=== PATIENT | female | born 1990 | race Caucasian/White ===

== ENCOUNTER 2018-05-06 21:40 | Emergency (ER) | payer BC ==
[~2018-05-06 21:40] MED LIST: Glycopyrrolate 0.2 MG/ML 5 ML SYRINGE ONE; Lidocaine 1% PF 5 ML VIAL ONE; Ondansetron HCl/PF 4 MG/2 ML Vial ONE; PROPOFOL 200 MG/20 ML VIAL ONE; Succinylcholine Chloride 20 MG/ML 10 ml SYRINGE FS ONE
[2018-05-06 22:05] LABS: #Basophils 0.1 thou/uL (0.0-0.2); #Eosinphils 0.1 thou/uL (0.0-0.7); #Lymphocytes 2.6 thou/uL (1.20-3.40); #Monocytes 0.6 thou/uL (0.11-0.59); #Neutrophils 4.9 thou/uL (1.40-6.50); %Basophils 0.7 % (0.0-1.0); %Eosinophils 1.8 % (0.0-10.0); %Lymphocytes 30.9 % (21.0-51.0); %Monocytes 7.5 % (0.0-10.0); %Neutrophils 59.2 % (42.0-75.0); Hemoglobin 13.4 g/dL (12.0-16.0); Mean Corpuscular HGB CONC 34.4 g/dL (32.0-36.0); Mean Platelet Volume 7.3 fL (7.4-10.4); Platelet Count 234 thou/uL (130-400); RBC Distribution Width 12.1 % (11.5-14.5); Red Blood Cell (RBC) Count 4.19 mill/uL (4.20-5.40); White Blood Cell (WBC) Count 8.3 thou/uL (4.8-10.8)
--- NOTE | 2018-05-06 23:18 | ULT ---
ULTRASOUND PELVIC TRANSVAGINAL WITH DOPPLER: History: Vaginal bleeding. Comparison: None. FINDINGS: Uterus is retroflexed. The thickness of the endometrium is 1.4 cm. There is vascular flow to be ovaries. Moderate volume of free fluid. Abnormal left adnexal mass adjacent to the left ovary. IMPRESSION: Findings concerning for ruptured left adnexal ectopic . Code CR. Dr. Adair 10:55 p.m. POS: [facility]
[2018-05-06] MEDS ORDERED: Fentanyl 250 MCG/5 ML VIAL ONE (23:26)
[2018-05-06] MEDS ORDERED: Midazolam HCl 2 mg/2 ml Vial ONE (23:26)
[2018-05-07] MEDS ORDERED: Bupivacaine/Epinephrine 0.25% 30 ML VIAL ONE (00:22)
--- NOTE | 2018-05-07 00:38 | HP ---
DATE OF SERVICE: 05/06/2018 CHIEF COMPLAINT: Abdominal pain, vaginal bleeding. HISTORY OF PRESENT ILLNESS: This is a 27-year-old G3, P2-0-0-1 at approximately 7 weeks' gestation, who came in with vaginal bleeding and significant cramping with left lower quadrant pain. She was evaluated in the emergency room with an ultrasound showing suspected ectopic . Her pain has since improved, but she continues to have some mild vaginal bleeding. REVIEW OF SYSTEMS: Negative for head, eyes, ears, nose, throat, cardiovascular , respiratory, GI, , neuro, psych, musculoskeletal, skin, or constitutional symptoms other than mentioned above. PAST MEDICAL HISTORY: Hypothyroidism. PAST SURGICAL HISTORY: Prior x2, appendectomy. MEDICATIONS: Levothyroxine. ALLERGIES: No known drug allergies. SOCIAL HISTORY: Negative for tobacco, alcohol, or drug abuse. 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 Second delivery: Repeat was uncomplicated and the child is living. PHYSICAL EXAMINATION: VITAL SIGNS: Afebrile, normotensive, and mild tachycardia. GENERAL: Awake, alert, in no acute distress. CHEST: Nonlabored breathing. ABDOMEN: Soft, minimally tender to palpation. No rebound or guarding. EXTREMITIES: No edema. IMAGING: Pelvic ultrasound with thickened endometrium at 1.4 cm. Moderate free fluid and possible left ectopic noted. LABORATORY DATA: hCG 1125, hemoglobin 13.4, hematocrit 38.9. ASSESSMENT AND PLAN: A 27-year-old G3, P2-0-0-1 with possible ruptured ectopic based on ultrasound findings. I discussed the findings with patient and recommended proceeding with diagnostic laparoscopy with possible removal of ectopic . All consents were signed, questions were answered and we will proceed with the surgery as described. No antibiotics indicated. PCDs for DVT prophylaxis. MTDD
[2018-05-07] MEDS ORDERED: Meperidine HCl/PF 25 MG/ML VIAL ONE (01:12)
[2018-05-07] MEDS ORDERED: Promethazine HCl 25 MG/ML VIAL ONE (01:18)
[2018-05-07] MEDS ORDERED: Fentanyl 100 MCG/2 ML VIAL ONE (01:47)
--- NOTE | 2018-05-07 02:10 | OP ---
DATE OF SERVICE: 05/07/2018 PREPROCEDURE DIAGNOSIS: Suspected ectopic . POSTPROCEDURE DIAGNOSES: Left ectopic with hemoperitoneum. PROCEDURE PERFORMED: Laparoscopic left salpingectomy with evacuation of hemoperitoneum. SURGEON: Laquita Benoit M.D. [employer] SUPERVISOR: Savanna Liu D.O. ANESTHESIA: General endotracheal. COMPLICATIONS: None. ESTIMATED BLOOD LOSS: 10 mL. FINDINGS: Normal uterus, ovaries bilaterally, and right fallopian tube. Left fallopian tube with a bleeding ectopic . A small hemoperitoneum noted. A surgically absent appendix. Small adhesions of omentum to anterior abdominal wall. DESCRIPTION OF PROCEDURE: The patient was taken to the operating room where general anesthesia was obtained without difficulty. She was prepared and draped in the normal sterile fashion in the dorsal lithotomy position with the Yellofin leg holders. A sponge stick was placed in the vagina. The bladder was drained approximately 350 mL of urine. Attention was turned to the abdomen where a 5 mm skin incision was made in the infraumbilical fold. A Veress needle was advanced into the abdomen and the abdomen was insufflated with CO2 gas. A 5 mm trocar was advanced under direct visualization with a Visiport. The above findings were noted. A 5 mm port was placed in the right lower quadrant and then an 11 mm port in the left lower quadrant. Hemoperitoneum was evacuated using suction irrigation. The left ectopic was removed with the LigaSure device with good hemostasis. The specimen was placed in Endobag and removed. Good hemostasis was again noted. The 11 mm port was removed under direct visualization. The fascia was closed with a Landon- Sydnie device. The remaining CO2 gas was evacuated and 5 mm trocars were removed. The skin was closed with 4-0 Monocryl and Dermabond. The sponge stick was removed from the vagina. The incisions were injected with 0.25% Marcaine with epinephrine. The patient tolerated the procedure well. Sponge, lap, and needle counts were correct x2. The patient was taken to recovery room in stable condition. [facility]
== END 2018-05-06 23:59 | disposition admitted as inpatient to this hospital (09) ==
LOC: ERS 21:40
DX: O00.90 Unspecified ectopic pregnancy without intrauterine pregnancy (principal); Z3A.01 Less than 8 weeks gestation of pregnancy; Z79.899 Other long term (current) drug therapy
CPT/HCPCS: 36415; 76856; 84702; 85025; 86850; 86900; 86901; 88305; 96374; J2001; J2175; J2250; J2405; J2550; J2704; J3010